=== PATIENT | female | born 1990 | race Caucasian/White ===

== ENCOUNTER 2016-04-04 07:36 | Day surgery (SDC) | payer OTHER ==
[~2016-04-04] VITALS: Ht 157.5 cm; Wt 62.6 kg
[~2016-04-04 07:36] MED LIST: CLARITIN,ALAVAR10 MG PO; COLACE100 MG PO; CYMBALTA30 MG PO; GABAPENTIN800 MG PO; IMODIUM A-D2 M2 PO; MAALOX ADVANCE355 ML PO; METHADONE5 MG PO; MOTRIN600 MG PO; MULTIPLE VITAM1 EACH PO; PEPTO BISMOL240 ML PO; PROMETHAZINE HC25 M1 PO; STRATTERA25 MG PO; TYLENOL EXTRA500 MG PO; VISTARIL50 MG PO
[2016-04-04 08:12] VITALS: BP 127/85
[2016-04-04 09:27] LABS: METH RESISTANT S AUREUS PCR NEGATIVE (NEGATIVE)
[2016-04-04 09:32] LABS: PROBE CHECK PASS; SPECIMEN PROCESSING CONTROL PASS
[2016-04-04 14:15] VITALS: BP 136/82
[2016-04-04 14:45] VITALS: BP 136/90
== END 2016-04-04 15:00 | disposition home or self-care (01) ==
LOC: SDC 07:36
PROVIDERS: Orthopaedic Surgery Hand Surgery
PROC: 0PSJ04Z Reposition Left Radius with Internal Fixation Device, Open Approach (ICD-10-PCS; principal; 2016-04-04)
DX: S52.502A Unspecified fracture of the lower end of left radius, initial encounter for closed fracture (principal); S52.615A Nondisplaced fracture of left ulna styloid process, initial encounter for closed fracture; Y92.009 Unspecified place in unspecified non-institutional (private) residence as the place of occurrence of the external cause; Y93.E9 Activity, other interior property and clothing maintenance; W07.XXXA Fall from chair, initial encounter; Y99.8 Other external cause status; F11.20 Opioid dependence, uncomplicated
CPT/HCPCS: 73100; 76000; 87641; C1713; J0330; J0690; J1100; J1170; J2250; J2405; J3010; J7120; S0020